=== PATIENT | male | born 1980 ===

== ENCOUNTER 2019-01-28 10:06 | Observation (INO) | payer OTHER ==
[2019-01-28] VITALS (17 sets, daily range): BP systolic 111–144; BP diastolic 49–87
[~2019-01-28] VITALS: Ht 172.7 cm; Wt 95.3 kg
[~2019-01-28 10:06] MED LIST: CLON0.1T PO; HYDR12.5 PO; MIRT30TA8 PO; TRAM50TA2 PO; acetaminophen 325mg tablet PO ONE; cefazolin/dext.iso 2gm/50ml 100 ML IV ONE; famotidine 20mg tablet PO ONE; gabapentin 300mg capsule PO ONE; metoclopramide 5 mg/ml inj IV ONE; oxyCODONE SR 10mg (sust. release) tab PO ONE; ringers solution, lacted 1,000 ML IV SCH; tranexamic acid inj. 1,000 MG in normal saline 100 ML IV ONE; vancomycin inj 1,500 MG in normal saline 300ml IV soln IV ONE
[2019-01-28] MEDS ORDERED: LIDOcaine 1% (10mg/ml) 2ml vial ONE (10:54)
[2019-01-28] MEDS ORDERED: Thrombin (Bovine) 5,000 unit vial TP ONE (12:04)
[2019-01-28] MEDS ORDERED: vancomycin 1,000mg inj ONE (12:04)
[2019-01-28] MEDS ORDERED: ringers solution, lacted 1,000 ML IV SCH (12:42)
[2019-01-28] MEDS ORDERED: meperidine/PF 25mg/ml syringe IV PRN ×3 (12:45)
[2019-01-28] MEDS ORDERED: proCHLORperazine 10 MG/2 ml inj IV PRN (12:45)
[2019-01-28] MEDS ORDERED: morphine 4 MG/ML inj SYRINge IV PRN (12:45)
[2019-01-28] MEDS ORDERED: ondansetron/PF 4mg/2ml inj IV PRN ×2 (12:45→16:15)
[2019-01-28] MEDS ORDERED: cloNIDine hcl/PF 100mcg/ml inj ONE (13:15)
[2019-01-28] MEDS ORDERED: sevoflurane 250ml liquid IH ONE (13:22)
[2019-01-28] MEDS ORDERED: LIDOcaine 1%/PF 5ML 10 MG/ML VIAL ONE (13:22)
[2019-01-28] MEDS ORDERED: fentaNYL/PF 50MCG/1 ML 2ML syringe ONE (13:30)
[2019-01-28] MEDS ORDERED: MIDAZolam 5mg/5ml vial ONE (13:30)
[2019-01-28] MEDS ORDERED: propofol inj 20 ML IV ONE (13:43)
[2019-01-28] MEDS ORDERED: dexamethasone sod phosphate 4mg/ml inj. ONE (13:44)
[2019-01-28] MEDS ORDERED: diphenhydrAMINE 50 mg/ml inj ONE (13:46)
[2019-01-28] MEDS: ceFAZolin 1000mg inj ONE ×2 (14:32→14:33)
[2019-01-28] MEDS ORDERED: ketorolac trometh. 30mg/ml inj. ONE (15:35)
[2019-01-28] MEDS ORDERED: rocuronium 10mg/ml inj IV ONE (15:35)
[2019-01-28] MEDS ORDERED: bisacodyl 10mg suppository rectal RC PRN (16:15)
[2019-01-28] MEDS ORDERED: acetaminophen 325mg tablet PO PRN (16:15)
[2019-01-28] MEDS ORDERED: magnesium hydroxide 30ml (MOM) UD suspension PO PRN (16:15)
[2019-01-28] MEDS ORDERED: HYDROmorphone inj. 0.5 MG/0.5 ML DISP.SYRIN IV PRN (16:15)
[2019-01-28] MEDS ORDERED: oxyCODONE IR 5mg (immed. release) tablet PO PRN (16:15)
[2019-01-28] MEDS ORDERED: diphenhydrAMINE 25mg capsule PO PRN ×2 (16:15)
--- NOTE | 2019-01-28 16:32 | NUR ---
Received from OR via ORTHO BED WITH FLBASSAM , accompanied by Anesthesiologist JACKSON and report given by Anesthesiolgist. PATIENT WITH 20G PIV IN LEFT UE RUNNING LR AT 100. PATIENT WITH RIGHT SHOULDER WRAP AND COOL PACK. + RADIAL PULSE PRESENT. PILLOW PLACED UNDER ELBOW 2' NERVE BLOCK. Addendum: 01/28/19 at 1649 by Neri Mart RN, RN Amended: Links added.
[2019-01-28] MEDS: morphine 4 MG/ML inj SYRINge IV PRN ×2 (17:09→17:19)
--- NOTE | 2019-01-28 17:32 | NUR ---
Report called to receiving nurse. Transferred via ORTHO BED WITHO ONE BAG OF Belongings. Special Issues communicated to receiving nurse ROBERT PETE.VSS. PAIN MUCH IMPROVED WITH MEDICATION. + RADIAL PULSE PRESENT. CALL LIGHT IN REACH, DRESSING TO RIGHT SHOULDER IS CDI. VSS. PATIENTS RN PRESENT TO ACCEPT. Addendum: 01/28/19 at 1751 by Neri Mart RN RN Amended: Links added.
[2019-01-28] MEDS: HYDROmorphone 1 mg/ml syringe IV PRN ×2 (17:47→22:10)
[2019-01-28] MEDS ORDERED: tranexamic acid inj. 950 MG in normal saline 100ml IV soln 100 ML IV ONE (19:00)
[2019-01-28] MEDS ORDERED: acetaminophen 325mg tablet PO SCH (20:00)
[2019-01-28] MEDS ORDERED: vancomycin/NS 1 GM ADD-VANTAGE 250 ML IV SCH (20:00)
[2019-01-28] MEDS: oxyCODONE IR 5mg (immed. release) tablet PO PRN (20:48)
[2019-01-28] MEDS ORDERED: sennosides 8.6mg tablet PO SCH (21:00)
[2019-01-28] MEDS: gabapentin 300mg capsule PO SCH (21:26)
[2019-01-28] MEDS: potassium cl 20mEq in 1/2 NS 1,000 ML IV SCH (21:27)
[2019-01-29] MEDS: potassium cl 20mEq in 1/2 NS 1,000 ML IV SCH ×2 (00:11→08:11)
[2019-01-29 01:15] VITALS: BP 147/90
[2019-01-29] MEDS: oxyCODONE IR 5mg (immed. release) tablet PO PRN ×4 (01:39→15:27)
[2019-01-29] MEDS: ceFAZolin 1GM/D5W- ADD-VANTAGE 50 ML IV SCH ×2 (01:43→08:00)
[2019-01-29 02:00] VITALS: BP 147/90
[2019-01-29] MEDS: HYDROmorphone 1 mg/ml syringe IV PRN (02:24)
[2019-01-29 06:00] VITALS: BP 151/86
--- NOTE | 2019-01-29 06:10 | NUR ---
Patient in room ORTHO 4006. I have received report from Fany PETE and had the opportunity to ask questions and assume patient care.
[2019-01-29] MEDS ORDERED: ASPI-1 PO (06:43)
[2019-01-29] MEDS ORDERED: HYDROmorphone 2mg tablet PO PRN (06:50)
[2019-01-29 07:01] LABS: BASOPHILS % (AUTO) 0.1 % (0-1); EOSINOPHILS % (AUTO) 0 % (0-6); HEMATOCRIT 36.8 % (42.0-52.0); HEMOGLOBIN 12.7 g/dl (14.0-17.9); LYMPHOCYTES # (AUTO) 1.4 X10'3 (1.1-4.8); LYMPHOCYTES % (AUTO) 10.1 % (21-51); MEAN CORPUSCULAR HEMOGLOBIN 30.4 PG (27.0-31.0); MEAN CORPUSCULAR HGB CONC 34.6 g/dL (33.0-36.5); MEAN CORPUSCULAR VOLUME 87.8 FL (78-98); MEAN PLATELET VOLUME 8.6 FL (7.4-10.4); MONOCYTES # (AUTO) 1.1 X10'3 (0-0.9); MONOCYTES % (AUTO) 8.1 % (2-12); NEUTROPHILS # (AUTO) 11.2 X10'3 (1.8-7.7); NEUTROPHILS % (AUTO) 81.7 % (42-75); PLATELET COUNT 263 X10'3 (140-440); RED BLOOD COUNT 4.19 X10'6 (4.70-6.10); RED CELL DISTRIBUTION WIDTH 12.6 % (11.5-14.5); WHITE BLOOD COUNT 13.8 X10'3 (4.5-11.0)
[2019-01-29 07:13] LABS: ANION GAP 10 (8-16); CHLORIDE 104 MMOL/L (99-107); POTASSIUM 3.5 MMOL/L (3.5-5.1); SODIUM 139 MMOL/L (135-145); TOTAL CARBON DIOXIDE 25.2 MMOL/L (24-32)
[2019-01-29] MEDS: gabapentin 300mg capsule PO SCH ×2 (07:28→14:48)
[2019-01-29] MEDS ORDERED: aspirin 325mg tablet PO SCH (08:30)
[2019-01-29] MEDS ORDERED: oxyCODONE SR 40mg (sust release) tab PO ONE (09:30)
[2019-01-29 10:00] VITALS: BP 171/101
[2019-01-29] MEDS ORDERED: celeCOXIB 100mg capsule PO SCH ×2 (10:20→20:00)
--- NOTE | 2019-01-29 15:05 | NUR ---
Pt s/p joint replacement: PO 100% regular diet meeting needs. labs WNL. Going back to long-term once stable. No need for nutrition interventions at this time. Addendum: 01/29/19 at [address] Amended: Links added.
[2019-01-30] MEDS ORDERED: acetaminophen 325mg tablet PO PRN (16:15)
== END 2019-01-29 15:50 ==
LOC: PAS 10:06 → EEVIPCON 14:30 → ORTHO 4S 16:11
PROVIDERS: ADMIT Orthopaedic Surgery; ATTEND Orthopaedic Surgery
DX: M19.011 Primary osteoarthritis, right shoulder (principal); M25.511 Pain in right shoulder; I10 Essential (primary) hypertension; F32.9 Major depressive disorder, single episode, unspecified
CPT/HCPCS: 23472; 36415; 73020; 80051; 82948; 85025; 96365; 96366; 96367; 96375; 96376; 97161; 97530; C1713; C1776; C9250; G0378; J0690; J0735; J1100; J1170; J1200; J1885; J2001; J2175; J2250; J2270; J2704; J2765; J3010; J3370; J3490; 96361; A4565; A7000; J7030; J7120